=== PATIENT | female | born 1960 | race American Indian/Alaskan Native ===

== ENCOUNTER 2021-08-13 12:18 | Day surgery (SDC) | payer MEDICAID ==
[2021-08-07 12:33] LABS: BASOPHILS # (AUTO) 0.1 X10'3 (0-0.2); BASOPHILS % (AUTO) 0.9 % (0-1); EOSINOPHILS # (AUTO) 0.4 X10'3 (0-0.9); EOSINOPHILS % (AUTO) 4.6 % (0-6); LYMPHOCYTES # (AUTO) 2.2 X10'3 (1.1-4.8); LYMPHOCYTES % (AUTO) 25.5 % (21-51); MEAN CORPUSCULAR HEMOGLOBIN 29.7 PG (27.0-31.0); MEAN CORPUSCULAR HGB CONC 35.7 g/dL (33.0-36.5); MEAN CORPUSCULAR VOLUME 83.1 FL (78-98); MEAN PLATELET VOLUME 9.4 FL (7.4-10.4); MONOCYTES # (AUTO) 0.6 X10'3 (0-0.9); MONOCYTES % (AUTO) 7.3 % (2-12); NEUTROPHILS # (AUTO) 5.4 X10'3 (1.8-7.7); NEUTROPHILS % (AUTO) 61.7 % (42-75); PRE OP HEMATOCRIT 33.9 % (35.0-45.0); PRE OP HEMOGLOBIN 12.1 g/dL (12.0-16.0); PRE OP PLATELET COUNT 250 X10'3 (140-440); RED BLOOD COUNT 4.08 X10'6 (4.20-5.60); RED CELL DISTRIBUTION WIDTH 20.5 % (11.5-14.5)
[2021-08-07 12:48] LABS: ALBUMIN 4.6 G/DL (3.4-5.0); ALBUMIN/GLOBULIN RATIO 1.5 (1.1-1.5); ALKALINE PHOSPHATASE 75 IU/L (46-116); BLOOD UREA NITROGEN 19 MG/DL (7-18); BUN/CREATININE RATIO 27.9 (6.6-38.0); CALCIUM 9.1 MG/DL (8.5-10.1); CHLORIDE 108 MMOL/L (99-107); CREATININE 0.68 MG/DL (0.40-0.90); PRE OP ALT 24 U/L (30-65); PRE OP ANION GAP 11 (8-16); PRE OP AST 28 U/L (10-37); PRE OP BILIRUB, TOTAL 1.6 MG/DL (0.0-1.0); PRE OP GLUCOSE 81 MG/DL (70-104); PRE OP POTASSIUM 4.2 MMOL/L (3.4-5.1); PRE OP SODIUM 143 MMOL/L (135-145); TOTAL PROTEIN 7.7 G/DL (6.4-8.2); eGFR 88 ML/MIN
[2021-08-07 13:28] LABS: PLATELET ESTIMATE NORMAL; POLYCHROMASIA 1+
[2021-08-07 13:30] LABS: ANISOCYTOSIS 3+; SPHEROCYTES 2+
[~2021-08-13] VITALS: Ht 157.5 cm; Wt 87.4 kg
[2021-08-13] VITALS (11 sets, daily range): BP systolic 131–163; BP diastolic 71–102
[~2021-08-13 12:18] MED LIST: CHOL10008 PO; INDOCYANINE GREEN 25 MG/10 ML VIAL IV ONE; OMEP40CA21 PO; cefazolin/dext.iso 2gm/50ml IV ONE; famotidine 20mg tablet PO ONE; ringers solution, lacted 1,000 ML IV SCH
[2021-08-13] MEDS ORDERED: sugammadex 200mg/2ml injection IV ONE (12:19)
[2021-08-13] MEDS ORDERED: fentaNYL/PF 50MCG/1 ML 2ML syringe ONE ×2 (15:27→16:48)
[2021-08-13] MEDS ORDERED: midazolam 1 mg/ML 2ml injection ONE (15:28)
[2021-08-13] MEDS ORDERED: BUPIVAcaine/PF 2.5mg/ml (0.25%) 10ml vial ONE (16:15)
[2021-08-13] MEDS ORDERED: LIDOcaine 1% 30ml preserv. free vial ONE (16:15)
[2021-08-13] MEDS ORDERED: ondansetron/PF 4mg/2ml inj IV PRN (16:20)
[2021-08-13] MEDS ORDERED: morphine 4 MG/ML inj SYRINge IV PRN (16:20)
[2021-08-13] MEDS ORDERED: morphine 2 MG/ML inj. syringe IV PRN (16:20)
[2021-08-13] MEDS ORDERED: proCHLORperazine 10 MG/2 ml inj IV PRN (16:20)
[2021-08-13] MEDS ORDERED: ringers solution, lacted 1,000 ML IV SCH (16:20)
[2021-08-13] MEDS ORDERED: meperidine/PF 25mg/ml syringe IV PRN ×3 (16:20)
[2021-08-13] MEDS ORDERED: HYDROcodone/acetaminophen 5mg/325mg tablet PO PRN (17:40)
[2021-08-13] MEDS ORDERED: glycopyrrolate 0.2mg/ml inj ONE (18:46)
[2021-08-13] MEDS ORDERED: ondansetron/PF 4mg/2ml inj ONE (18:46)
[2021-08-13] MEDS ORDERED: propofol inj 20 ML IV ONE (18:46)
[2021-08-13] MEDS ORDERED: neostigmine methylsulfate 1 MG/ML 10ml vial ONE (18:46)
[2021-08-13] MEDS ORDERED: LIDOcaine 2% (20mg/ml) 5ml vial ONE (18:46)
[2021-08-13] MEDS ORDERED: rocuronium 10mg/ml inj IV ONE (18:46)
[2021-08-13] MEDS ORDERED: dexamethasone sod phosphate 4mg/ml inj. ONE (18:46)
--- NOTE | 2021-08-13 19:24 | NUR ---
PT UP AND ABLE TO AMBULATE SAFELY, STATES PAIN IS IMPROVING AND WANTS TO GO HOME. D/C INSTRUCTIONS GIVEN AND GONE OVER W/PT WHO VERBALIZED UNDERSTANDING. PT D/CD TO HOME VIA W/C TO PRIVATE VEHICLE W/O INCIDENT. Addendum: 08/13/21 at 1999 by Joceline Padilla RN Amended: Links added.
== END 2021-08-13 19:24 | disposition home or self-care (01) ==
LOC: PAS 12:18
PROVIDERS: ATTEND Surgery
DX: K80.10 Calculus of gallbladder with chronic cholecystitis without obstruction (principal); K21.9 Gastro-esophageal reflux disease without esophagitis; E66.9 Obesity, unspecified; Z68.34 Body mass index [BMI] 34.0-34.9, adult; Z87.891 Personal history of nicotine dependence; Z90.710 Acquired absence of both cervix and uterus; Z98.890 Other specified postprocedural states; Z86.19 Personal history of other infectious and parasitic diseases; Z88.8 Allergy status to other drugs, medicaments and biological substances; Z79.899 Other long term (current) drug therapy; Z20.822 Contact with and (suspected) exposure to COVID-19; Z82.49 Family history of ischemic heart disease and other diseases of the circulatory system; Z82.3 Family history of stroke
CPT/HCPCS: 36415; 47563; 80053; 82948; 85025; 93005; J0690; J1100; J2250; J2405; J2704; J2710; J3010; J3490; J7030; J7120; S2900; U0003; U0005; Z7506; Z7508; Z7512; 85008; A4215; A4618